=== PATIENT | female | born 1970 | race Hispanic/Latino ===

== ENCOUNTER 2016-11-13 06:38 | Day surgery (SDC) | payer OTHER ==
[2016-11-13] MEDS ORDERED: NACL 0.9% 500 ML 500 ML IV SCH (08:00)
[2016-11-13] MEDS ORDERED: XYLOCAINE 2% INFILTRATI ONE (08:33)
[2016-11-13] MEDS ORDERED: HEPARIN/NS 5000 UNIT/500ML(CATH LAB) 1,000 ML IR ONE (08:33)
[2016-11-13] MEDS ORDERED: CALAN ONE (08:33)
[2016-11-13] MEDS ORDERED: HEPARIN 10,000 UNITS/10 ML ONE (08:33)
[2016-11-13] MEDS ORDERED: NITROGLYCERIN SYRINGE 3 ML ONE (08:34)
[2016-11-13] MEDS ORDERED: SUBLIMAZE ONE (08:35)
[2016-11-13] MEDS: VERSED ONE ×2 (08:48→08:49)
--- NOTE | 2016-11-13 09:43 | Cardiac Catherization Report ---
CARDIAC CATHETERIZATION REFERRING PHYSICIAN: Dr. Lizbeth French. INDICATION FOR PROCEDURE: The patient is a very pleasant 46-year-old female who presents with chest pain, abnormal stress test, referred for left heart catheterization. Risks, benefits and alternatives explained at length prior to obtaining informed consent. PROCEDURE IN DETAIL: The patient was brought to the [facility] in a postabsorptive state, prepped and draped in sterile fashion. Cameron's test in right hand was normal. A 2 mL of 2% lidocaine used to anesthetize the right wrist. A standard 6-[place] hydrophilic sheath used to cannulate the right radial artery via modified Seldinger technique. All exchanges performed to exchange a J-tip guidewire. JL3.5 catheter used to engage left main. No dampening or ventricularization. Cineangiography performed in all projections. JR4 catheter used to cross the aortic valve under fluoroscopic guidance. Left ventriculography performed in 30 US and 30 SLOVENIAN projections via hand injections. Catheter flushed. Manual pullback performed with continuous pressure monitoring. Catheter used to engage the right coronary. No dampening or ventricularization. Cineangiography performed in all projections. INTERPRETATION: The patient remained in normal sinus rhythm throughout the procedure. Heart rate in the 80s, sinus rhythm, aortic pressure is 130/70, LV pressure is 130, LVEDP of 6 mmHg. Left ventriculography revealed normal systolic performance with estimated ejection fraction of 55% to 60%. No evidence of aortic stenosis. CORONARY ANATOMY: Right dominant system. Left main without significant disease, bifurcates in left anterior descending and left circumflex. Left circumflex, courses AV groove, gives off an OM trunk. No significant disease. LAD is a moderate sized vessel, courses AV changes a codominant system. LAD is a moderate sized vessel, courses anterior intergroove, wraps around the apex. Normal tapering in the distal LAD. Right coronary is a moderate sized vessel, courses AV groove, gives off a right PDA. No significant disease. CONCLUSIONS: 1. No angiographic evidence of significant epicardial coronary disease in this codominant system. 2. Normal left ventricular systolic performance, estimated ejection fraction of 55% to 60%. 3. No evidence of aortic stenosis. 4. Normal LVEDP. Results of the procedure were explained at length to the patient and family. All questions and concerns were addressed. Aggressive primary and secondary prevention measures, weight loss, diet modification. We will check a V/Q scan to exclude pulmonary embolus. Have her follow up with Dr. Lizbeth French in the office. No immediate complications identified. JOB# [id number] SBM/NTS
--- NOTE | 2016-11-13 10:08 | XRay Report ---
AP CHEST: HISTORY: Shortness of breath AP view of the chest demonstrates a normal mediastinal and cardiac contour with clear lungs and normal bony and soft tissue structures. IMPRESSION: No acute cardiopulmonary process.
--- NOTE | 2016-11-13 11:41 | Nuclear Medicine Report ---
LUNG SCAN, VENTILATION AND PERFUSION: History: Shortness of breath. Findings: Inhalation of Xenon gas demonstrates a normal distribution of the activity throughout both lungs. The wash out phases show no focal retention of activity. After injection of Technetium 99m macroaggregated albumin gamma camera imaging of the lungs in multiple projections demonstrates normal pulmonary contours with a homogeneous distribution of activity. No focal areas of perfusion deficiency are identified. IMPRESSION: Normal study.
[2016-11-13 12:20] VITALS: BP 108/49
== END 2016-11-13 12:45 | disposition home or self-care (01) ==
LOC: OPU 06:38
PROVIDERS: ATTEND Internal Medicine
DX: R94.39 Abnormal result of other cardiovascular function study (principal); R07.9 Chest pain, unspecified; M17.0 Bilateral primary osteoarthritis of knee; Z91.011 Allergy to milk products; Z98.890 Other specified postprocedural states; Z88.5 Allergy status to narcotic agent; Z91.012 Allergy to eggs; I10 Essential (primary) hypertension; Z79.899 Other long term (current) drug therapy; Z72.89 Other problems related to lifestyle; Z82.49 Family history of ischemic heart disease and other diseases of the circulatory system
CPT/HCPCS: 71010; 78582; 93005; 93010; 93458; A9540; A9558; C1894; J1644; J2250; J3010; J7040; Q9967